=== PATIENT | male | born 1990 | race Two or more races ===

== ENCOUNTER 2019-04-17 18:50 | Emergency (ER) | payer MEDICAID ==
[~2019-04-17] VITALS: Ht 162.6 cm; Wt 80.0 kg
--- NOTE | 2019-04-17 19:11 | NUR ---
Patient brought in by Ember PEREZ received report initially but this RN reviewed report with quality assurance qa lab analyst. Patient answers questions inconsistently, alert to name consistently. Gives correct information for height, weight, and date of occasionally. Gives varying answers to these questions though often being inappropriately. For example patient gave his height as 26 (neither appropriate for imperial or metric systems of measurement) then after other questions, patient then answers questions appropriately. Patient is a poor historian. Patient doesn't give clear complaint. Patient reports no pain, no discomfort, no shortness of breath. When asked about complaint patient gives unclear story regarding a trip to [place]. Per ANA patient has known schizophrenia diagnoses and behavior and complaints consistent with diagnoses. Patient assessed by provider, plan for chest xray and likely discharge.
[2019-04-17 20:39] VITALS: BP 106/58
== END 2019-04-17 21:04 | disposition home or self-care (01) ==
LOC: EDBD 18:50 → EDSEX 18:50 → ED 20:58
DX: R05 Cough (principal)
CPT/HCPCS: 71045; 99283